=== PATIENT | male | born 1960 | race Caucasian/White ===

== ENCOUNTER 2020-01-29 07:35 | Emergency (ER) | payer MEDICAID ==
[~2020-01-29] VITALS: Ht 182.9 cm; Wt 77.1 kg
[~2020-01-29 07:35] MED LIST: ASPI81TA45 PO; ATOR40TA78 PO; CARV6.2512 PO; FURO20TA3 PO; LISI5TAB7 PO; POTA10CA PO
--- NOTE | 2020-01-29 08:26 | NUR ---
Pt DC'd from this hospital yesterday, here today for "kidney pain", and superficial cutting on upper extremities. Pt states that he was hearing voices instructing him to cut his arms "to get the ammonia out of my blood". Pt appears comfortable, resp even and unlabored. VSWNL.
[2020-01-29 08:41] LABS: MICROSCOPIC INDICATED
[2020-01-29 08:51] LABS: AMPHETAMINE SCREEN, URINE Negative (Negative); BARBITURATE SCREEN, URINE Negative (Negative); BENZODIAZEPINE SCREEN, URINE Negative (Negative); CANNABINOID SCREEN, URINE Negative (Negative); COCAINE SCREEN, URINE Negative (Negative); METHADONE SCREEN, URINE Negative (Negative); OPIATE SCREEN, URINE Negative (Negative)
[2020-01-29 08:54] LABS: BASOPHILS % (AUTO) 0 % (0-1); EOSINOPHILS % (AUTO) 2 % (1-7); LYMPHOCYTES % (AUTO) 14 % (22-44); MEAN CORPUSCULAR HEMOGLOBIN 30.9 pg (27.5-34.5); MEAN CORPUSCULAR HGB CONC 33.3 g/dL (33.2-36.2); MEAN PLATELET VOLUME 6.6 fL (7.4-10.4); MONOCYTES % (AUTO) 7 % (2-9); NEUTROPHILS % (AUTO) 77 % (42-75); PLATELET COUNT 319 x10^3/uL (130-400); RED BLOOD COUNT 5.57 x10^6/uL (4.38-5.82); RED CELL DISTRIBUTION WIDTH 13.7 % (9.4-14.8)
[2020-01-29 08:56] LABS: MD NO
[2020-01-29 09:04] LABS: ALBUMIN 3.5 g/dL (3.4-5.0); ANION GAP 4 mmol/L (5-15); CALCIUM 8.9 mg/dL (8.5-10.1); CHLORIDE 108 mmol/L (98-107)
[2020-01-29 09:08] LABS: ALANINE AMINOTRANSFERASE 47 U/L (12-78); ALKALINE PHOSPHATASE 61 U/L (45-117); BILIRUBIN,TOTAL 0.5 mg/dL (0.2-1.0); CREATININE 0.76 mg/dL (0.7-1.3); TOTAL PROTEIN 6.7 g/dL (6.4-8.2)
--- NOTE | 2020-01-29 10:04 | NUR ---
Pt sleeping, no complaints at this time. VSWNL. Will monitor.
--- NOTE | 2020-01-29 10:41 | NUR ---
Pt sleeping, waiting for psych PAPER WOOD CUTTER.
--- NOTE | 2020-01-29 11:05 | NUR ---
Pt seen by psych LAND SURVEYOR MANAGER. Pt resting, no needs at this time. VS updated.
--- NOTE | 2020-01-29 11:29 | NUR ---
Pt moved to room 3, placed on hold, report provided to AVA Hutchinson.
[2020-01-29] MEDS ORDERED: QUETIAPINE 25MG TABLET ONE (11:55)
[2020-01-29] MEDS: QUETIAPINE 25MG TABLET PO SCH (12:00)
--- NOTE | 2020-01-29 13:08 | NUR ---
PACKET FAXED TO [facility]
[2020-01-29] MEDS ORDERED: LORazepam 1MG TABLET ONE (15:29)
[2020-01-29] MEDS ORDERED: LORazepam 1MG TABLET PO ONE (15:30)
--- NOTE | 2020-01-29 17:31 | NUR ---
Geramine Corona (Sister) would like updates.
--- NOTE | 2020-01-29 18:11 | NUR ---
DINNER TRAY ORDERED FOR PATIENT. PT RESTING WITH NO COMPLAINTS. PT REMAINS UNDER CONSTANT SUPERVISION OF SITTER AND REMAINS SAFE.
[2020-01-29] MEDS ORDERED: QUETIAPINE 100MG TABLET PO SCH (21:00)
[2020-01-30] MEDS ORDERED: QUETIAPINE 100MG TABLET ONE (07:07)
--- NOTE | 2020-01-30 07:27 | NUR ---
THROUGHPUT RN: PACKET FAXED TO [facility]
--- NOTE | 2020-01-30 07:51 | NUR ---
THROUGHPUT RN: PT DENIED BY [facility].
--- NOTE | 2020-01-30 07:55 | NUR ---
PT RESTING ON GURNEY AT THIS TIME. VSS, SI PRECAUTION OBSERVED, PT REQUESTING MEAL TRAY, ORDER PLACED, NO OTHER NEEDS
--- NOTE | 2020-01-30 07:57 | NUR ---
PT RESTING ON GURNEY AT THIS TIME. VSS, SI PRECAUTION OBSERVED, PT REQUESTING MEAL TRAY, ORDER PLACED, NO OTHER NEEDS
--- NOTE | 2020-01-30 07:57 | NUR ---
Vanessa kirk in ED - 01/30/20 at 0757 by CHINO PT RESTING ON [employer] AT THIS TIME. VSS, SI PRECAUTION OBSERVED, PT REQUESTING MEAL TRAY, ORDER PLACED, NO OTHER NEEDS
[2020-01-30] MEDS: QUETIAPINE 25MG TABLET PO SCH (07:58)
--- NOTE | 2020-01-30 08:45 | NUR ---
PT GIVEN MEAL TRAY, PT GRATEFUL. NO OTHER NEEDS
--- NOTE | 2020-01-30 09:52 | NUR ---
REPORT TO MONICA ESCALANTE
--- NOTE | 2020-01-30 11:00 | NUR ---
IN ROOM TO SEE PT. PT APPEARS RESTLESS. PT ATTEMPTING "TO MAKE MYSELF UNCONSCIOUS" WITH PILLOW. PT MADE AWARE THAT THAT BEHAVIOR IS UNACCEPTABLE AND IF HE WANTS TO CONTINUE TO HAVE A PILLOW HE NEEDS TO STOP. PT WAS RECEPTIIVE TO EDUCATION.
[2020-01-30] MEDS ORDERED: HALOPERIDOL 5 MG/ML IM PRN (13:30)
[2020-01-30] MEDS ORDERED: HALOPERIDOL 5 MG TABLET PO PRN (14:00)
--- NOTE | 2020-01-30 19:05 | NUR ---
PER BRITTNI FARRELL PT IS TO BE REEVALUATED IN THE MORNING. PT REMAINS IN ROOM. SITTER IN HALLWAY. PT CONSUMED ENTIRE DINNER.
[2020-01-30] MEDS ORDERED: OLANZAPINE 5 MG TABLET ONE (20:33)
[2020-01-30] MEDS: OLANZAPINE 5 MG TABLET PO SCH (20:37)
--- NOTE | 2020-01-30 23:06 | NUR ---
2230: report from sarika roberts. pt sleeping, rr equal and unlabored. sitter outside door, needs met. security updated complete.
--- NOTE | 2020-01-30 23:48 | NUR ---
JUICE/CRACKERS PROVIDED. PT REMAINS CALM, COOPERATIVE, SITTER OUTSIDE ROOM.
--- NOTE | 2020-01-31 00:32 | NUR ---
TASK RN: PT SLEEPING IN ROOM AT THIS TIME WITH SITTER OUTSIDE OF ROOM FOR DIRECT OBSERVATION OF PT;
--- NOTE | 2020-01-31 01:27 | NUR ---
PT SLEEPING, RR EQUAL AND UNLABORED. FOOD/WATER AT BEDSIDE. IN LINE OF SITE OF SITTER, WILL CONTINUE TO MONITOR.
[2020-01-31] MEDS ORDERED: HALOPERIDOL 5 MG/ML ONE (01:31)
[2020-01-31] MEDS: BENZTROPINE 1 MG TABLET PO SCH ×2 (01:33→08:55)
--- NOTE | 2020-01-31 01:33 | NUR ---
PT REPORTS FEELING VERY AGITATED, LIKE "IM COMING OUT OF MY SKIN", ANXIOUS. PACING ROOM. MEDICATED WITH PRN IM HALDOL. SITTER OUTSIDE ROOM. VSS.
--- NOTE | 2020-01-31 03:04 | NUR ---
SLEEPING, RR EQUAL AND UNLABORED. SITTER OUTSIDE ROOM. SAFETY CHECKS UPDATED.
--- NOTE | 2020-01-31 03:47 | NUR ---
SLEEPING RR EQUAL AND UNLABORED, SITTER IN LINE OF SITE. WILL CONTINUE TO MONITOR.
--- NOTE | 2020-01-31 05:07 | NUR ---
PT SLEEPING, RR EQUAL AND UNLABORED. SITTER IN LINE OF SITE. WILL CONTINUE TO MONITOR.
--- NOTE | 2020-01-31 06:11 | NUR ---
PLAN FOR THIS PT PER BRITTNI FARRELL IS FOR HIM TO BE RE-EVALUATED IN AM.
--- NOTE | 2020-01-31 07:03 | NUR ---
REPORT RECEIVED FROM NINO ESCALANTE.
--- NOTE | 2020-01-31 07:12 | NUR ---
DIET TRAY ORDERED AT THIS TIME.
--- NOTE | 2020-01-31 08:30 | NUR ---
diet tray provided at this time.
[2020-01-31] MEDS ORDERED: BENZTROPINE 1 MG TABLET ONE (08:53)
[2020-01-31] MEDS ORDERED: OLANZAPINE 5 MG TABLET ONE (08:53)
[2020-01-31] MEDS: OLANZAPINE 5 MG TABLET PO SCH (08:55)
--- NOTE | 2020-01-31 09:00 | NUR ---
pt medicated per emar. pt tolerated well.
[2020-01-31 09:10] VITALS: BP 114/7
--- NOTE | 2020-01-31 10:12 | NUR ---
pt sleeping in hospital bed. resps even and unlabored. sitter monitoring from hallway for safety. room remains secure.
--- NOTE | 2020-01-31 11:03 | NUR ---
diet tray ordered at this time.
[2020-01-31] MEDS ORDERED: GABAPENTIN 300 MG CAPSULE ONE (12:14)
--- NOTE | 2020-01-31 12:17 | NUR ---
deit tray provided at this time. pt medicated per emar. pt tolerated well.
[2020-01-31] MEDS ORDERED: GABAPENTIN 300 MG CAPSULE PO ONE (12:30)
--- NOTE | 2020-01-31 12:38 | NUR ---
Patient given discharge instructions and they have confirmed that they understand the instructions. Patient ambulatory with steady gait. TAXI VOUCHER GIVEN AT RI.
== END 2020-01-31 12:39 | disposition home or self-care (01) ==
LOC: ED 09:36
DX: S41.112A Laceration without foreign body of left upper arm, initial encounter (principal); S41.111A Laceration without foreign body of right upper arm, initial encounter; F15.159 Other stimulant abuse with stimulant-induced psychotic disorder, unspecified; R94.31 Abnormal electrocardiogram [ECG] [EKG]; I25.10 Atherosclerotic heart disease of native coronary artery without angina pectoris; I25.2 Old myocardial infarction; I10 Essential (primary) hypertension; E78.5 Hyperlipidemia, unspecified; Z90.89 Acquired absence of other organs; W45.8XXA Other foreign body or object entering through skin, initial encounter; Y93.89 Activity, other specified; Y92.89 Other specified places as the place of occurrence of the external cause; Y99.8 Other external cause status
CPT/HCPCS: 36415; 76700; 80053; 80307; 81001; 82140; 85025; 93005; 99285; Q0177

== ENCOUNTER 2021-01-06 22:55 | Emergency (ER) | payer MEDICAID ==
[~2021-01-06] VITALS: Ht 182.9 cm; Wt 80.0 kg
--- NOTE | 2021-01-06 23:06 | NUR ---
EKG DONE IN TRIAGE.
[2021-01-07 00:16] LABS: BASOPHILS % (AUTO) 0 % (0-1); EOSINOPHILS % (AUTO) 1 % (1-7); LYMPHOCYTES % (AUTO) 22 % (22-44); MEAN CORPUSCULAR HEMOGLOBIN 31.3 pg (27.5-34.5); MEAN CORPUSCULAR HGB CONC 34.1 g/dL (33.2-36.2); MEAN PLATELET VOLUME 6.2 fL (7.4-10.4); MONOCYTES % (AUTO) 7 % (2-9); NEUTROPHILS % (AUTO) 69 % (42-75); PLATELET COUNT 508 x10^3/uL (130-400); RED BLOOD COUNT 4.63 x10^6/uL (4.38-5.82); RED CELL DISTRIBUTION WIDTH 14.1 % (9.4-14.8)
[2021-01-07 00:28] LABS: ALANINE AMINOTRANSFERASE 49 U/L (12-78); ALBUMIN 3.6 g/dL (3.4-5.0); ANION GAP 9 mmol/L (5-15); CALCIUM 8.8 mg/dL (8.5-10.1); CHLORIDE 105 mmol/L (98-107); CREATININE 1.12 mg/dL (0.7-1.3)
[2021-01-07 00:33] LABS: ALKALINE PHOSPHATASE 66 U/L (45-117); BILIRUBIN,TOTAL 0.3 mg/dL (0.2-1.0); TOTAL PROTEIN 7.3 g/dL (6.4-8.2); TROPONIN I < 0.015 ng/mL (0.000-0.045)
[2021-01-07 00:35] VITALS: BP 111/80
--- NOTE | 2021-01-07 00:35 | NUR ---
PT RESTING ON [employer]LOT[employer]NA ESCALERA, PT PROVIDED WITH WATER PER REQUEST.
--- NOTE | 2021-01-07 01:42 | NUR ---
CONVERSATION WITH PT ABOUT DC PLAN, PT STS HE AND HIS MOTHER HAVE NOTHING UNTIL THE 17 WHEN THEY GET PAID. THEY WILL BE SLEEPING ON THE STREETS TONIGHT. PT PROVIDED LIST OF RESOURCES AND TAXI VOUCHER UPON DC PT BEGAN TO REQUEST ADDTIONAL SUPPLIES FOR HIS MOTHER. PT MOTHER DOES NOT WANT ANY ASSISTANCE WITH SUPPLIES.
== END 2021-01-07 01:45 | disposition home or self-care (01) ==
LOC: ED 23:59
DX: R53.1 Weakness (principal); I44.7 Left bundle-branch block, unspecified; I10 Essential (primary) hypertension; E78.5 Hyperlipidemia, unspecified; I25.10 Atherosclerotic heart disease of native coronary artery without angina pectoris; I25.2 Old myocardial infarction; F17.200 Nicotine dependence, unspecified, uncomplicated
CPT/HCPCS: 36415; 71045; 80053; 84145; 84484; 85025; 93005; 99285